=== PATIENT | male | born 1940 | race Caucasian/White ===

== ENCOUNTER 2018-03-12 12:09 | Emergency (ER) | payer MEDICARE, OTHER, SELFPAY ==
[2018-03-12 12:17] VITALS: BP 134/71; PULSE 92; RESP 18; TEMP 36.8; O2SAT 98
[2018-03-12 12:30] VITALS: BP 134/71; PULSE 92; RESP 18; O2SAT 98
--- NOTE | 2018-03-12 13:25 | ED_ITS ---
HPI - Abdominal Pain <Tere Estes PA-C - Last Filed: 03/12/18 22:14> General Chief Complaint: Abdominal Pain Stated Complaint: PT STATES RECTAL BLEEDING Time Seen by Provider: 03/12/18 12:21 Source: patient Mode of arrival: ambulatory Limitations: no limitations History of Present Illness HPI narrative: This 77-year-old male complains of onset of rectal bleeding last night. That the initial episode was with a bowel movement. He had 2 other episodes yesterday where some blood was dripping in the toilet without a bowel movement. He also had 2 episodes today where he was dripping red, not dark blood. He states he does not think this was a lot of blood. There were no clots. He states he has never had anything like this before. He does not have any abdominal pain, nausea, or vomiting. He denies any weakness or dizziness and states he walked quite a distance today. He denies any chest pain or dyspnea. He denies any recent medication changes or dietary changes aside from drinking 2 bottles of wine over the last 3 days when he states normally he would have no more than 2 drinks per day. [place], has not traveled anywhere out of the area recently, no new fever or any other new symptoms on systems review. He later recalls that he had bleeding hemorrhoids in the 1970s which caused similar symptoms he believes, treated with suppositories Related Data Home Medications Medication Instructions Recorded Confirmed amlodipine 10 mg PO DAILY 03/12/18 03/12/18 atorvastatin 40 mg PO DAILY 03/12/18 03/12/18 doxazosin 4 mg PO DAILY 03/12/18 03/12/18 finasteride 5 mg PO DAILY 03/12/18 03/12/18 omeprazole 20 mg PO DAILY 03/12/18 03/12/18 Allergies Allergy/AdvReac Type Severity Reaction Status Date / Time No Known Drug Allergies Allergy Verified 03/12/18 13:48 Review of Systems <Tere Estes PA-C - Last Filed: 03/12/18 22:14> Review of Systems All systems reviewed & are unremarkable except as noted in HPI and below Exam <Tere Estes PA-C - Last Filed: 03/12/18 22:14> Narrative Exam Narrative: GENERAL APPEARANCE: Patient sitting comfortably, in no distress. HEENT: PERRL, EOMI, conjunctiva pink NECK: Supple LUNGS: Clear to auscultation bilaterally. HEART: Rate and rhythm regular with frequent single skips, rapid, normal S1 and S2, no S3 or S4. ABDOMEN: Soft, nontender, nondistended, bowel sounds present x 4 quadrants, no masses palpable, no hepatosplenomegaly. EXTREMITIES: No edema, no cyanosis DERMATOLOGIC: No jaundice or exanthem NEUROLOGIC: Alert and oriented with normal speech, gait, and coordination RECTAL: Normal sphincter tone, no external masses or palpable internal masses, minimal dark stool in vault, FOB + Course <Tere Estes PA-C - Last Filed: 03/12/18 22:14> Hospital Course: I reviewed labs and findings with Dr. Garcia who agrees patient does not appear to need admission today. Discussed with patient that colonoscopy is needed and that typically we would advise close f/u with PCP in a day or two to recheck labs and coordinate. He will have to decide whether to return home. He plans to call his PCP in the morning to coordinate this. In the interim, he agrees to stop ASA. He will increase Prilosec to b.i.d.. He will stop alcohol. He agreed to return if any worsening bleeding or new symptoms such as weakness or dizziness Orders Ordered: Discontinued Medications Sodium Chloride (Normal Saline 0.9%) 500 mls @ 1,000 mls/hr IV BOLUS ONE Stop: 03/12/18 14:36 Last Admin: 03/12/18 16:05 Dose: Sodium Chloride (Normal Saline 0.9%) 1,000 mls @ 1,000 mls/hr IV BOLUS ONE Stop: 03/12/18 15:14 Last Infusion: 03/12/18 15:31 Dose: 0 mls/hr Admin: 03/12/18 14:17 Dose: 1,000 mls/hr Pantoprazole Sodium (Protonix) 40 mg IV NOW ONE Stop: 03/12/18 12:53 Last Admin: 03/12/18 14:22 Dose: 40 mg Last Vital Signs Temp 98.2 F 03/12/18 12:17 Pulse 102 H 03/12/18 16:05 Resp 16 03/12/18 16:05 BP 155/82 H 03/12/18 16:05 Pulse Ox 98 03/12/18 16:05 <Maksim Garcia DO - Last Filed: 03/13/18 07:44> Orders Ordered: Discontinued Medications Sodium Chloride (Normal Saline 0.9%) 500 mls @ 1,000 mls/hr IV BOLUS ONE Stop: 03/12/18 14:36 Last Admin: 03/12/18 16:05 Dose: Sodium Chloride (Normal Saline 0.9%) 1,000 mls @ 1,000 mls/hr IV BOLUS ONE Stop: 03/12/18 15:14 Last Infusion: 03/12/18 15:31 Dose: 0 mls/hr Admin: 03/12/18 14:17 Dose: 1,000 mls/hr Pantoprazole Sodium (Protonix) 40 mg IV NOW ONE Stop: 03/12/18 12:53 Last Admin: 03/12/18 14:22 Dose: 40 mg Last Vital Signs Temp 98.2 F 03/12/18 12:17 Pulse 102 H 03/12/18 16:05 Resp 16 03/12/18 16:05 BP 155/82 H 03/12/18 16:05 Pulse Ox 98 03/12/18 16:05 MDM - Abdominal Pain <Tere Estes PA-C - Last Filed: 03/12/18 22:14> Lab Data Result diagrams: 03/12/18 12:15 03/12/18 12:15 Lab Results 03/12/18 03/12/18 03/12/18 Range/Units 12:15 12:15 12:15 WBC 7.4 (4.5-11.0) X10^3/uL RBC 4.22 L (4.5-5.9) X10^6/uL Hgb 13.9 (13.5-17.5) g/dL Hct 40.4 L (41-53) % MCV 95.7 (80-100) fL MCH 32.8 (26-34) PG MCHC 34.3 (30-36) % RDW 13.7 (11.6-14.8) % Plt Count 225 (150-400) X10^3/uL Neut % (Auto) 77.5 H (50-75) % Lymph % (Auto) 14.3 L (25-40) % Churchill % (Auto) 7.5 (3-14) % Eos % (Auto) 0.4 L (2-4) % Baso % (Auto) 0.3 (0-2) % Neut # (Auto) 5800 (9355-0780) /uL PT (10.1-12.7) SECONDS INR (0.9-1.3) APTT Cancelled Sodium 143 (137-145) mmol/L Potassium 4.5 (3.4-5.1) mmol/L Chloride 105.0 (98-107) mmol/L Carbon Dioxide 26.0 (22-32) mmol/L BUN 26.0 H (9-20) mg/dL Creatinine 0.90 (0.66-1.25) mg/dL Estimated GFR > 60.0 (>60) mL/min BUN/Creatinine Ratio 28.9 H (6-22) Glucose 139 H (80-110) mg/dL Calcium 9.9 (8.4-10.2) mg/dL Total Bilirubin 0.9 (0.2-1.3) mg/dL AST 62 H (17-59) IU/L ALT 46 (21-72) IU/L Alkaline Phosphatase 55 (38-126) U/L Total Protein 7.3 (6.3-8.2) g/dL Albumin 4.5 (3.5-5.0) g/dL Globulin 2.8 (1.7-4.1) g/dL Albumin/Globulin Ratio 1.6 (1.0-2.8) Blood Type Antibody Screen 03/12/18 03/12/18 Range/Units 12:15 12:15 WBC (4.5-11.0) X10^3/uL RBC (4.5-5.9) X10^6/uL Hgb (13.5-17.5) g/dL Hct (41-53) % MCV (80-100) fL MCH (26-34) PG MCHC (30-36) % RDW (11.6-14.8) % Plt Count (150-400) X10^3/uL Neut % (Auto) (50-75) % Lymph % (Auto) (25-40) % Churchill % (Auto) (3-14) % Eos % (Auto) (2-4) % Baso % (Auto) (0-2) % Neut # (Auto) (5929-1032) /uL PT 11.8 (10.1-12.7) SECONDS INR 1.1 (0.9-1.3) APTT 37 H Sodium (137-145) mmol/L Potassium (3.4-5.1) mmol/L Chloride (98-107) mmol/L Carbon Dioxide (22-32) mmol/L BUN (9-20) mg/dL Creatinine (0.66-1.25) mg/dL Estimated GFR (>60) mL/min BUN/Creatinine Ratio (6-22) Glucose (80-110) mg/dL Calcium (8.4-10.2) mg/dL Total Bilirubin (0.2-1.3) mg/dL AST (17-59) IU/L ALT (21-72) IU/L Alkaline Phosphatase (38-126) U/L Total Protein (6.3-8.2) g/dL Albumin (3.5-5.0) g/dL Globulin (1.7-4.1) g/dL Albumin/Globulin Ratio (1.0-2.8) Blood Type A Positive Antibody Screen Negative ECG Data Attestation: I personally reviewed and interpreted this ECG as follows: (sinus tach, rate 109, freq single PACs) Prior ECG tracings: not available for review <Maksim Garcia DO - Last Filed: 03/13/18 07:44> Lab Data Lab Results 03/12/18 03/12/18 03/12/18 Range/Units 12:15 12:15 12:15 WBC 7.4 (4.5-11.0) X10^3/uL RBC 4.22 L (4.5-5.9) X10^6/uL Hgb 13.9 (13.5-17.5) g/dL Hct 40.4 L (41-53) % MCV 95.7 (80-100) fL MCH 32.8 (26-34) PG MCHC 34.3 (30-36) % RDW 13.7 (11.6-14.8) % Plt Count 225 (150-400) X10^3/uL Neut % (Auto) 77.5 H (50-75) % Lymph % (Auto) 14.3 L (25-40) % Churchill % (Auto) 7.5 (3-14) % Eos % (Auto) 0.4 L (2-4) % Baso % (Auto) 0.3 (0-2) % Neut # (Auto) 5800 (3276-0544) /uL PT (10.1-12.7) SECONDS INR (0.9-1.3) APTT Cancelled Sodium 143 (137-145) mmol/L Potassium 4.5 (3.4-5.1) mmol/L Chloride 105.0 (98-107) mmol/L Carbon Dioxide 26.0 (22-32) mmol/L BUN 26.0 H (9-20) mg/dL Creatinine 0.90 (0.66-1.25) mg/dL Estimated GFR > 60.0 (>60) mL/min BUN/Creatinine Ratio 28.9 H (6-22) Glucose 139 H (80-110) mg/dL Calcium 9.9 (8.4-10.2) mg/dL Total Bilirubin 0.9 (0.2-1.3) mg/dL AST 62 H (17-59) IU/L ALT 46 (21-72) IU/L Alkaline Phosphatase 55 (38-126) U/L Total Protein 7.3 (6.3-8.2) g/dL Albumin 4.5 (3.5-5.0) g/dL Globulin 2.8 (1.7-4.1) g/dL Albumin/Globulin Ratio 1.6 (1.0-2.8) Blood Type Antibody Screen 03/12/18 03/12/18 Range/Units 12:15 12:15 WBC (4.5-11.0) X10^3/uL RBC (4.5-5.9) X10^6/uL Hgb (13.5-17.5) g/dL Hct (41-53) % MCV (80-100) fL MCH (26-34) PG MCHC (30-36) % RDW (11.6-14.8) % Plt Count (150-400) X10^3/uL Neut % (Auto) (50-75) % Lymph % (Auto) (25-40) % Churchill % (Auto) (3-14) % Eos % (Auto) (2-4) % Baso % (Auto) (0-2) % Neut # (Auto) (1156-2046) /uL PT 11.8 (10.1-12.7) SECONDS INR 1.1 (0.9-1.3) APTT 37 H Sodium (137-145) mmol/L Potassium (3.4-5.1) mmol/L Chloride (98-107) mmol/L Carbon Dioxide (22-32) mmol/L BUN (9-20) mg/dL Creatinine (0.66-1.25) mg/dL Estimated GFR (>60) mL/min BUN/Creatinine Ratio (6-22) Glucose (80-110) mg/dL Calcium (8.4-10.2) mg/dL Total Bilirubin (0.2-1.3) mg/dL AST (17-59) IU/L ALT (21-72) IU/L Alkaline Phosphatase (38-126) U/L Total Protein (6.3-8.2) g/dL Albumin (3.5-5.0) g/dL Globulin (1.7-4.1) g/dL Albumin/Globulin Ratio (1.0-2.8) Blood Type A Positive Antibody Screen Negative Discharge Plan Departure Patient Disposition: Home, Self-Care Clinical Impression: RB (rectal bleeding) Discharge Date/Time: 03/12/18 16:07 Interventions: ED Discharge Assessment Last Done: 03/12/18 16:05 Instructions: DI for Rectal Bleeding Activity Restrictions/Additional Instructions: As we talked about, you must return here immediately if you have worsening bleeding or are feeling poorly. Stop taking your aspirin, and do not take any NSAIDs or [id number] pain medication aside from Tylenol. Increase your omeprazole to 1 tab twice daily about 45 min before breakfast and dinner. Stop drinking alcohol since you were drinking a bit more than usual when this started. Our recommendation is that you see your PCP within the next couple of days for recheck labs and to coordinate further testing and colonoscopy. You should call there today and set up a follow-up plan. We also noticed that your heart rate is on the high side but it is not clear whether the that is abnormal for you. This can be monitored since you have not had any symptoms. Prescriptions: No Action atorvastatin 40 mg tablet 40 mg PO DAILY RF: 0 amlodipine 10 mg tablet 10 mg PO DAILY RF: 0 omeprazole 20 mg capsule,delayed release(DR/EC) 20 mg PO DAILY RF: 0 doxazosin 4 mg tablet 4 mg PO DAILY RF: 0 finasteride 5 mg tablet 5 mg PO DAILY RF: 0 Referrals: Domenic Ocampo MD [Non-Staff] - <Maksim Garcia DO - Last Filed: 03/13/18 07:44> Cosign ED Attending [place] Attestation: I was available for consultation during this patient's emergency department encounter
[2018-03-12 13:31] LABS: INR 1.1 (0.9-1.3); Prothrombin Time 11.8 SECONDS (10.1-12.7)
[2018-03-12 13:32] VITALS: BP 136/67; PULSE 106; RESP 18; O2SAT 95
[2018-03-12 13:34] LABS: Alanine Aminotransferase 46 IU/L (21-72); Albumin 4.5 g/dL (3.5-5.0); Albumin Globulin Ratio 1.6 (1.0-2.8); Alkaline Phosphatase 55 U/L (38-126); Aspartate Aminotransferase 62 IU/L (17-59); BUN Creatinine Ratio 28.9 (6-22); Bilirubin Total 0.9 mg/dL (0.2-1.3); Calcium 9.9 mg/dL (8.4-10.2); Estimated Glomerular Filt Rate > 60.0 mL/min (>60); Globulin 2.8 g/dL (1.7-4.1); Glucose 139 mg/dL (80-110); HEMOLYSIS 15 (0-50); PTT Partial Thromboplastin Tim 37 SECONDS (26.4-36.2); Potassium 4.5 mmol/L (3.4-5.1); Sodium 143 mmol/L (137-145); Total Protein 7.3 g/dL (6.3-8.2)
[2018-03-12 13:35] LABS: Add Manual Diff / Slide Review NO; Basophils Percent Auto 0.3 % (0-2); Eosinophils Percent Auto 0.4 % (2-4); Hematocrit 40.4 % (41-53); Hemoglobin 13.9 g/dL (13.5-17.5); Lymphocytes Percent Auto 14.3 % (25-40); Mean Corpuscular HGB Conc 34.3 % (30-36); Mean Corpuscular Hemoglobin 32.8 PG (26-34); Mean Corpuscular Volume 95.7 fL (80-100); Monocytes Percent Auto 7.5 % (3-14); Neutrophils Absolute Auto 5800 /uL (3000-5900); Neutrophils Percent Auto 77.5 % (50-75); Platelet Count 225 X10^3/uL (150-400); Red Blood Cell Count 4.22 X10^6/uL (4.5-5.9); Red Cell Distribution Width 13.7 % (11.6-14.8); White Blood Cell Count 7.4 X10^3/uL (4.5-11.0)
[2018-03-12 14:07] VITALS: BP 150/82; PULSE 104; RESP 18; O2SAT 95
[2018-03-12] MEDS: SODIUM CHLORIDE 0.9% 1,000 ML 1000 ML IV (14:17)
[2018-03-12] MEDS: PANTOPRAZOLE 40 MG VIAL IV (14:22)
[2018-03-12 15:18] VITALS: BP 141/79; PULSE 93; RESP 16; O2SAT 96
[2018-03-12 16:05] VITALS: BP 155/82; PULSE 102; RESP 16; O2SAT 98
== END 2018-03-12 16:07 | disposition home or self-care (01) ==
PROVIDERS: Emergency Provider Internal Medicine
DX: K62.5 Hemorrhage of anus and rectum (principal)
CPT/HCPCS: 36591; 80053; 82272; 85025; 85610; 85730; 86850; 86900; 86901; 93005; 96361; 96374; 99283; 99284; C9113